=== PATIENT | female | born 2005 | race Caucasian/White ===

== ENCOUNTER 2024-05-06 14:12 | Emergency (ER) | payer BC ==
[2024-05-06 15:24] LABS: #Basophils Less than 0.03 10x3/uL (0.0-0.2); %Basophils 0.2 % (0.0-1.0); %Eosinophils 0.4 % (0.0-10.0); %Lymphocytes 11.6 % (28.0-48.0); %Monocytes 3.9 % (0.0-4.0); %Neutrophils 83.5 % (31.0-61.0); Hematocrit 37.3 % (36.0-47.0); Hemoglobin 12.9 g/dL (12.0-16.0); Mean Corpuscular HGB CONC 34.6 g/dL (32.0-36.0); Mean Corpuscular Hemoglobin 29.9 pg (25.0-35.0); Mean Corpuscular Volume 86.5 fL (78.0-98.0); Mean Platelet Volume 11.1 fL (7.4-10.4); Platelet Count 217 10x3/uL (130-400); RBC Distribution Width 11.8 % (11.5-14.5); Red Blood Cell (RBC) Count 4.31 mill/uL (4.00-5.20)
[2024-05-06 15:29] LABS: BHCG - Serum Negative (NEGATIVE)
[2024-05-06 15:30] LABS: Albumin 4.3 g/dL (3.5-5.0); Chloride 108 mmol/L (98-107); Potassium 3.6 mmol/L (3.5-5.1); Pregs Control Background? CLEAR/WHITE (CLR/WHITE); Pregs Control Bar Appear? YES (CONTROL BAR); Sodium 138 mmol/L (136-145)
[2024-05-06 15:31] LABS: Calcium 8.8 mg/dL (7.8-10.44); Glucose 121 mg/dL (70-105)
[2024-05-06 15:32] LABS: Carbon Dioxide 23 mmol/L (22-29); Globulin 2.8 g/dL (2.4-3.5); Protein, Total 7.1 g/dL (6.0-8.3)
[2024-05-06 15:33] LABS: Anion Gap 11 mmol/L (10-20)
[2024-05-06 15:34] LABS: Alkaline Phosphatase 44 U/L (40-100); Bilirubin, Total 0.3 mg/dL (0.2-1.2)
[2024-05-06 15:35] LABS: BUN (Urea Nitrogen) 10 mg/dL (7.0-18.7); Lipase 26 U/L (8-78)
[2024-05-06 15:37] LABS: ALT (SGPT) 12 U/L (8-55); AST (SGOT) 16 U/L (5-34)
[2024-05-06 16:26] LABS: Calc. Creatinine Clearance 0 mL/min (70-130); Estimated GFR 98
== END 2024-05-06 17:04 | disposition home or self-care (01) ==
LOC: ERS 14:12
DX: N94.6 Dysmenorrhea, unspecified (principal)
CPT/HCPCS: 36415; 80053; 83690; 84703; 85025; 93005; 99284